=== PATIENT | male | born 1980 | race Caucasian/White ===

== ENCOUNTER 2020-12-22 13:22 | Observation (INO) | payer OTHER ==
[~2020-12-22] VITALS: Ht 170 cm; Wt 68.2 kg
[~2020-12-22 13:22] MED LIST: HYDR-2890 PO; VARE0.5T PO
[2020-12-22] MEDS ORDERED: CATHETER FLUSH 10 ML SYR IV PRN ×2 (13:45→18:15)
[2020-12-22] MEDS ORDERED: NS 100 ML (IVPB) BAG IV ONE (13:45)
[2020-12-22] MEDS ORDERED: HOLD METFORMIN - RECEIVED CONTRAST 20 ML VIAL IV SCH (13:45)
[2020-12-22] MEDS ORDERED: IOHEXOL 350 MG/ML 100 ML (OMNIPAQUE 350) VIAL IV ONE (13:45)
[2020-12-22] MEDS ORDERED: TETANUS,DIPTH,PERTUSS P/F (BOOSTRIX) 0.5 ML VIAL IM ONE (13:45)
[2020-12-22 13:49] LABS: BASOPHILS # (AUTO) 0.1 10^3/uL (0.0-0.1); BASOPHILS % (AUTO) 0 % (0-10); EOSINOPHILS % (AUTO) 0 % (0-10); HEMATOCRIT 42 % (40-54); HEMOGLOBIN 14.4 g/dL (13.3-17.7); LYMPHOCYTES # (AUTO) 1.1 10^3/uL (1.0-4.0); LYMPHOCYTES % (AUTO) 5 % (12-44); MEAN CORPUSCULAR HEMOGLOBIN 31 pg (25-34); MEAN CORPUSCULAR HGB CONC 34 g/dL (32-36); MEAN CORPUSCULAR VOLUME 91 fL (80-99); MEAN PLATELET VOLUME 9.5 fL (9.0-12.2); MONOCYTES % (AUTO) 9 % (0-12); NEUTROPHILS # (AUTO) 18.5 10^3/uL (1.8-7.8); NEUTROPHILS % (AUTO) 85 % (42-75); PLATELET COUNT 311 10^3/uL (130-400); WHITE BLOOD COUNT 21.8 10^3/uL (4.3-11.0)
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
[2020-12-22 14:04] LABS: ALBUMIN 4.6 GM/DL (3.2-4.5); CHLORIDE 101 MMOL/L (98-107); POTASSIUM 3.9 MMOL/L (3.6-5.0); SODIUM 140 MMOL/L (135-145)
[2020-12-22 14:05] LABS: CALCIUM 9.7 MG/DL (8.5-10.1)
[2020-12-22 14:06] LABS: GLUCOSE 116 MG/DL (70-105)
[2020-12-22 14:07] LABS: TOTAL PROTEIN 7.3 GM/DL (6.4-8.2)
[2020-12-22 14:08] LABS: BILIRUBIN,TOTAL 0.4 MG/DL (0.1-1.0); CARBON DIOXIDE 28 MMOL/L (21-32)
[2020-12-22 14:10] LABS: ALKALINE PHOSPHATASE 97 U/L (40-136); CREATININE SERUM 1.13 MG/DL (0.60-1.30); GFR ESTIMATED > 60
[2020-12-22 14:11] LABS: BAND NEUTROPHILS 0 %; BASOPHILS % (MANUAL) 0 %; BUN/CREATININE RATIO 15; EOSINOPHILS % (MANUAL) 1 %; LYMPHOCYTES % (MANUAL) 3 %; MONOCYTES % (MANUAL) 10 %; NEUTROPHILS % (MANUAL) 86 %; RBC MORPH NORMAL
[2020-12-22 14:13] LABS: ALANINE AMINOTRANSFERASE 524 U/L (0-55)
[2020-12-22] MEDS ORDERED: fentaNYL INJ 100 MCG/2 ML AMP IVP ONE (14:15)
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
[2020-12-22 16:08] LABS: BILIRUBIN,URINE NEGATIVE (NEGATIVE); CLARITY,URINE CLOUDY; COLOR,URINE YELLOW; GLUCOSE, URINE (UA) NEGATIVE (NEGATIVE); KETONES,URINE NEGATIVE (NEGATIVE); LEUKOCYTE ESTERASE ,URINE NEGATIVE (NEGATIVE); NITRITE,URINE NEGATIVE (NEGATIVE); PH,URINE 6.5 (5-9); PROTEIN,URINE 1+ (NEGATIVE)
[2020-12-22 16:15] LABS: BACTERIA,URINE TRACE /HPF; RBC,URINE 25-50 /HPF; SQUAMOUS EPITHELIAL CELL,UR RARE /HPF; WBC,URINE RARE /HPF
[2020-12-22 17:30] VITALS: BP 98/68
[2020-12-22] MEDS ORDERED: LACTATED RINGERS 1,000 ML IV ONE ×3 (17:41→18:15)
[2020-12-22] MEDS ORDERED: ONDANSETRON 4 MG/2 ML (SDV) Z0FRAN IV PRN (18:15)
[2020-12-22] MEDS ORDERED: HYDROcodone/APAP 5 MG/325 MG (LORTAB) TAB PO PRN (18:15)
[2020-12-22] MEDS ORDERED: CYCLOBENZAPRINE 10 MG (FLEXERIL) TAB PO PRN (18:30)
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
[2020-12-22] MEDS: fentaNYL INJ 100 MCG/2 ML AMP IV PRN (20:59)
[2020-12-23] MEDS: fentaNYL INJ 100 MCG/2 ML AMP IV PRN (00:41)
[2020-12-23 03:49] LABS: BASOPHILS # (AUTO) 0.1 10^3/uL (0.0-0.1); BASOPHILS % (AUTO) 1 % (0-10); EOSINOPHILS # (AUTO) 0.3 10^3/uL (0.0-0.3); EOSINOPHILS % (AUTO) 3 % (0-10); HEMATOCRIT 39 % (40-54); HEMOGLOBIN 12.7 g/dL (13.3-17.7); LYMPHOCYTES # (AUTO) 1.8 10^3/uL (1.0-4.0); LYMPHOCYTES % (AUTO) 16 % (12-44); MEAN CORPUSCULAR HEMOGLOBIN 30 pg (25-34); MEAN CORPUSCULAR HGB CONC 33 g/dL (32-36); MEAN CORPUSCULAR VOLUME 92 fL (80-99); MEAN PLATELET VOLUME 10.1 fL (9.0-12.2); MONOCYTES # (AUTO) 1.2 10^3/uL (0.0-1.0); MONOCYTES % (AUTO) 11 % (0-12); NEUTROPHILS # (AUTO) 7.8 10^3/uL (1.8-7.8); NEUTROPHILS % (AUTO) 70 % (42-75); PLATELET COUNT 267 10^3/uL (130-400); WHITE BLOOD COUNT 11.2 10^3/uL (4.3-11.0)
[2020-12-23 04:07] LABS: ALBUMIN 3.9 GM/DL (3.2-4.5)
[2020-12-23 04:08] LABS: CHLORIDE 102 MMOL/L (98-107); SODIUM 138 MMOL/L (135-145)
[2020-12-23 04:10] LABS: GLUCOSE 100 MG/DL (70-105); TOTAL PROTEIN 6.3 GM/DL (6.4-8.2)
[2020-12-23 04:11] LABS: CARBON DIOXIDE 26 MMOL/L (21-32)
[2020-12-23 04:12] LABS: BILIRUBIN,TOTAL 0.5 MG/DL (0.1-1.0)
[2020-12-23 04:13] LABS: ALKALINE PHOSPHATASE 85 U/L (40-136); CREATININE SERUM 0.83 MG/DL (0.60-1.30); GFR ESTIMATED > 60
[2020-12-23 04:15] LABS: BUN/CREATININE RATIO 22
[2020-12-23 04:16] LABS: ALANINE AMINOTRANSFERASE 423 U/L (0-55)
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
[2020-12-23] MEDS ORDERED: IBUPROFEN 600 MG (MOTRIN) TAB PO PRN (09:00)
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
[2020-12-23] MEDS ORDERED: MULT-1136 PO (12:09)
[2020-12-23] MEDS ORDERED: ASPI-789 PO (12:09)
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
[2020-12-23] MEDS ORDERED: CYCL10TA9 PO (12:12)
--- NOTE | 2020-12-23 12:13 | Discharge Inst-Simple/Standard ---
Discharge Inst-Standard Discharge Medications New, Converted or Re-Newed RX: Transmitted to Pharmacy Patient Instructions/Follow Up Plan of Care/Instructions/FU: [place] in 2 weeks if patient having any change in condition at that time or return to Er. Activity as Tolerated: Yes Discharge Diet: Regular Diet Other Inst to Patient Follow up Appt: Make appointment for 2 week [place] if any worsening be seen at that time. Instructions: No strenuous activity. Use incentive spirometer at home as directed. No Smoking Skin/Wound Care: Keep skin wound clean and dry. Symptoms to Report: Appetite Changes, Extremity Discoloration, Numbness/Tingling, Swelling Increased, Bleeding Excessive, Eyesight Changes, Pain Increased, Urine Color Change, Constipation(Persistent), Fever over 101 degree F, Pain/Pressure in chest, Urinating Difficulty, Cough Up/Vomit Blood, Heart Beat Irreg/Pounding, Pain/Pressure in jaw, Vaginal Bleeding Increase, Cramps in feet or legs, Lightheadedness, Pain/Pressure in shoulder, Diarrhea(Persistent), Memory Changes Suddenly, Questions/Concerns, Weight gain consecutive days, Dizziness/Fainting, Nausea/Vomiting, Shortness of Breath, Weight gain over 2 pounds If questions or concerns contact your physician Or seek help at emergency department. PURVI DACOSTA DO Dec 23, 2020 12:13
== END 2020-12-23 13:30 | disposition home or self-care (01) ==
LOC: EDUNIT# 13:22 → ER 13:27 → CSD 15:46 → UNDOADMOB 15:46 → CSD 17:36 → UNDODISOB 12-23 13:50
PROVIDERS: ADMIT Surgery; ATTEND Surgery
DX: S36.112A Contusion of liver, initial encounter (principal); S27.322A Contusion of lung, bilateral, initial encounter; I45.2 Bifascicular block; S26.91XA Contusion of heart, unspecified with or without hemopericardium, initial encounter; D72.829 Elevated white blood cell count, unspecified; F17.210 Nicotine dependence, cigarettes, uncomplicated; V89.2XXA Person injured in unspecified motor-vehicle accident, traffic, initial encounter; Z79.891 Long term (current) use of opiate analgesic; Z79.899 Other long term (current) drug therapy
CPT/HCPCS: 71260; 74177; 80053 ×2; 81000; 84484 ×2; 85007; 85025; 85027; 90471; 93005; 93306; 96374; 97161; 99284; G0378; 36415; 90715